=== PATIENT | male | born 1960 | race Hispanic/Latino ===

== ENCOUNTER 2020-11-10 07:55 | Day surgery (SDC) | payer BC ==
[2020-11-09 11:45] VITALS: BMI 28.1
[~2020-11-10 07:55] MED LIST: EPINEPHrine 0.3 MG in Ophthalmic Irrigation Solution 500 ML IRR SCH
[2020-11-10] MEDS ORDERED: Midazolam HCl 2 mg/2 ml Vial ONE (08:06)
[2020-11-10] MEDS ORDERED: Fentanyl 100 MCG/2 ML VIAL ONE (08:06)
[2020-11-10] MEDS ORDERED: Phenylephrine 2.5% Ophth Soln 5 ML BOT ONE (08:30)
[2020-11-10] MEDS ORDERED: Cyclopentolate 1% Opth Drop 2 ML BOT ONE (08:30)
[2020-11-10] MEDS ORDERED: Maxitrol 0.1% Opth Oint 3.5 GM TUBE ONE (10:13)
[2020-11-10] MEDS ORDERED: Bupivacaine PF 0.75% SDV 10 ML ONE (10:13)
[2020-11-10] MEDS ORDERED: Triamcinolone 40 MG/ML VIAL ONE (10:13)
[2020-11-10] MEDS ORDERED: CEFAZOLIN 1 GM VIAL ONE (10:13)
[2020-11-10] MEDS ORDERED: Lidocaine 1% PF 5 ML VIAL ONE (10:13)
[2020-11-10] MEDS ORDERED: Lidocaine 4% PF 5 ML AMP ONE (10:13)
== END 2020-11-10 11:48 | disposition home or self-care (01) ==
LOC: SDC 07:55
PROVIDERS: ATTEND Ophthalmology Retina Specialist
PROC: 08T53ZZ Resection of Left Vitreous, Percutaneous Approach (ICD-10-PCS; principal; 2020-11-10)
DX: H33.052 Total retinal detachment, left eye (principal); E78.5 Hyperlipidemia, unspecified; J84.10 Pulmonary fibrosis, unspecified; Z79.899 Other long term (current) drug therapy; Z87.891 Personal history of nicotine dependence
CPT/HCPCS: C1814; J0171; J0690; J2250; J3010; J3301; J3490

== ENCOUNTER 2021-04-08 10:13 | Outpatient (CLI) | payer BC ==
[2021-04-08 22:08] LABS: SARS-CoV-2 PCR by NAA Not Detected (NotDetected)
== END 2021-04-08 10:14 | disposition home or self-care (01) ==
LOC: LABBT 10:13
PROVIDERS: ATTEND Ophthalmology Retina Specialist
DX: Z01.812 Encounter for preprocedural laboratory examination (principal); Z20.822 Contact with and (suspected) exposure to COVID-19
CPT/HCPCS: U0003; U0005

== ENCOUNTER 2021-04-13 06:48 | Day surgery (SDC) | payer BC ==
[2021-04-12 10:42] VITALS: BMI 25.7
[2021-04-13] MEDS ORDERED: Fentanyl 100 MCG/2 ML VIAL ONE (07:04)
[2021-04-13] MEDS ORDERED: PROPOFOL 20 ML ONE (07:04)
[2021-04-13] MEDS ORDERED: Midazolam HCl 2 mg/2 ml Vial ONE (07:04)
[2021-04-13] MEDS ORDERED: Cyclopentolate 1% Opth Drop 2 ML BOT ONE (07:36)
[2021-04-13] MEDS ORDERED: Phenylephrine 2.5% Ophth Soln 5 ML BOT ONE (07:36)
[2021-04-13] MEDS ORDERED: EPINEPHrine 0.3 MG in Ophthalmic Irrigation Solution 500 ML IRR SCH (08:00)
[2021-04-13] MEDS ORDERED: Lidocaine 4% PF 5 ML AMP ONE (09:35)
[2021-04-13] MEDS ORDERED: Indocyanine Green 25 MG/10 ML VIAL ONE (09:35)
[2021-04-13] MEDS ORDERED: Bupivacaine PF 0.75% SDV 10 ML ONE (09:35)
[2021-04-13] MEDS ORDERED: Maxitrol 0.1% Opth Oint 3.5 GM TUBE ONE (09:35)
[2021-04-13] MEDS ORDERED: Lidocaine 1% PF 5 ML VIAL ONE (09:35)
[2021-04-13] MEDS ORDERED: Triamcinolone 40 MG/ML VIAL ONE (09:35)
[2021-04-13] MEDS ORDERED: CEFAZOLIN 1 GM VIAL ONE (09:35)
== END 2021-04-13 11:20 | disposition home or self-care (01) ==
LOC: SDC 06:48
PROVIDERS: ATTEND Ophthalmology Retina Specialist
PROC: 08NF3ZZ Release Left Retina, Percutaneous Approach (ICD-10-PCS; principal; 2021-04-13)
PROC: 08T53ZZ Resection of Left Vitreous, Percutaneous Approach (ICD-10-PCS; principal; 2021-04-13)
DX: H35.372 Puckering of macula, left eye (principal); Z79.52 Long term (current) use of systemic steroids; Z79.899 Other long term (current) drug therapy
CPT/HCPCS: J0171; J0690; J2250; J2704; J3010; J3301; J3490